=== PATIENT | female | born 1970 ===

== ENCOUNTER → 2021-03-05 08:07 | Outpatient (CLI) | payer BC, SELFPAY ==
[2021-03-05 11:58] LABS: COVID19 -Nasal RAPID Negative (Negative)
== END ==
PROVIDERS: Visit Provider Nurse Practitioner Family
DX: Z20.822 Contact with and (suspected) exposure to COVID-19 (principal)
CPT/HCPCS: 87635

== ENCOUNTER → 2021-03-06 06:47 | Outpatient (CLI) | payer BC, SELFPAY | PROVIDERS: Referring Provider Internal Medicine; Visit Provider Internal Medicine | DX: Z23 Encounter for immunization (principal) | CPT/HCPCS: 90471; 90686 ==

== ENCOUNTER → 2021-03-12 08:07 | Outpatient (CLI) | payer BC, SELFPAY ==
[2021-03-12 12:12] LABS: COVID19 -Nasal RAPID Negative (Negative)
== END ==
PROVIDERS: Visit Provider Physician Assistant
DX: Z20.822 Contact with and (suspected) exposure to COVID-19 (principal)
CPT/HCPCS: 87635

== ENCOUNTER → 2021-04-18 09:33 | Outpatient (CLI) | payer BC, SELFPAY ==
[2021-04-18 12:53] LABS: COVID19 -Nasal RAPID Negative (Negative)
== END ==
PROVIDERS: Visit Provider Nurse Practitioner Family
DX: Z20.822 Contact with and (suspected) exposure to COVID-19 (principal); R05.9 Cough, unspecified
CPT/HCPCS: 87635

== ENCOUNTER → 2022-01-22 08:53 | Outpatient (CLI) | payer BC, SELFPAY ==
[2022-01-22 11:50] LABS: COVID-19 CEPHEID PCR (VTM/NP) Negative (Negative)
== END ==
PROVIDERS: Visit Provider Family Medicine Sleep Medicine
DX: Z20.822 Contact with and (suspected) exposure to COVID-19 (principal)
CPT/HCPCS: U0003; U0005

== ENCOUNTER → 2022-02-20 11:12 | Outpatient (CLI) | payer OTHER, BC, SELFPAY | PROVIDERS: Referring Provider Internal Medicine; Visit Provider Internal Medicine | DX: Z23 Encounter for immunization (principal) | CPT/HCPCS: 90471; 90686 ==

== ENCOUNTER 2022-05-14 12:17 | Day surgery (SDC) | payer OTHER, BC, SELFPAY ==
--- NOTE | 2022-05-14 | PATH_ITS ---
[facility] Accession Number: [id number] No. of containers..01 Tissue . 01 Material submitted: . colon - TRANSVERSE POLYP . 01 Diagnosis: Transverse Colon, Polyp, Biopsy: Tubular adenoma. Additional levels were examined. MRV 05/21/2022 1806 Local . 01 Electronically signed: . Heather Luis MD, Pathologist NPI- [id number] . 01 Gross description: . TRANSVERSE POLYP: Received in formalin is 1 fragment(s) of danielson, soft tissue measuring 0.3 x 0.3 x 0.1 cm submitted entirely in 1 cassette(s) /CPE 05/15/2022 0853 Local . 01 Pathologist provided ICD-10: D12.3 . 01 CPT . 249497 Specimen Comment: A courtesy copy of this report has been sent to [phone] Performed at: 01 [facility] [address] [place] [address], [place], [place] [id number] MD Donnell Carty MD Phone: [phone]
[2022-05-14 13:05] VITALS: BP 141/96; PULSE 97; RESP 16; TEMP 36.3; O2SAT 99; BMI 25.7
[2022-05-14] MEDS: LACTATED RINGERS 1,000 ML 200 ML IV (13:31)
--- NOTE | 2022-05-14 13:49 | PM.HP.1 ---
History of Present Illness History of Present Illness Date Patient Seen: 05/14/22 Time Patient Seen: 13:49 Chief complaint: Colonoscopy Narrative: The patient presents for colorectal screening. They have never had any previous examination for such. No personal or family history of colon cancer. On further history denies any recent gastrointestinal symptoms. No nausea, vomiting, abdominal pain, loss of appetite, unexplained weight loss, change in bowel habits, or blood per rectum. Patient History Family & Social History Social History: household members spouse Tobacco & Substance use: Smoking Status Never smoker alcohol intake current alcohol intake frequency a few times a week Substance Use Type does not use Meds Home Medications and Allergies Home Medications Medication Instructions Recorded Confirmed Type losartan 25 mg tablet 25 mg PO DAILY 05/14/22 05/14/22 History metformin 850 mg tablet 850 mg PO BID 05/14/22 05/14/22 History ropinirole 2 mg tablet 2 mg PO DAILY 05/14/22 05/14/22 History semaglutide 7 mg tablet 7 mg PO DAILY 05/14/22 05/14/22 History Allergies Allergy/AdvReac Type Severity Reaction Status Date / Time zolpidem Allergy Hallucinati Verified 05/14/22 13:01 ng eszopiclone AdvReac Insomnia Verified 05/14/22 13:01 Exam Vital Signs (past 8 hours): - 05/14/22 13:05 Temperature 97.4 F L Pulse Rate 97 H Respiratory Rate 16 Blood Pressure 141/96 H Pulse Oximetry 99 Oxygen Delivery Method Room Air Oxygen Delivery Method Room Air Narrative Exam Narrative: General adult woman alert oriented no acute distress Assessment & Plan Assessment & Plan narrative: The patient requires colorectal screening and colonoscopy is recommended. Technical details were discussed. Risks, benefits, alternatives explained. Risks including but not limited to myocardial infarction, aspiration, bleeding, pain, missed lesion, incomplete examination, need for further radiographic studies, colonic perforation, and need for major abdominal surgery were discussed. All questions were answered to their satisfaction, and they are in agreement with this plan. Time Spent With Patient Critical Care time: I spent a total of [] minutes of critical care time on this patient's care today; this time is exclusive of procedural time.
--- NOTE | 2022-05-14 13:50 | PM.OP.COLON ---
Operative Date/Time/Diagnoses Date of procedure: 05/14/22 Time of procedure: 13:50 Pre-op diagnosis: Colorectal screening Post-op diagnosis: same Procedure & Clinicians Study performed: Colonoscopy Same procedure as scheduled: Yes Indications: Colorectal screening Surgeon: Olvin Kaur Procedure Notes Procedure in detail: The history and physical was performed/updated and the patient is ASA class is 2. The procedure was discussed in detail with the patient. Potential risks complications including infection, bleeding, missed diagnosis, perforation, need for surgery, and were explained. Their questions were answered and informed consent was obtained. Patient was brought to the procedure room and placed standard monitoring equipment. The patient's vital signs were monitored continuously throughout the entire procedure. Prior to starting time-out was performed. The patient was placed in the left lateral recumbent position. Procedural sedation was administered by anesthesia. Examination began with a thorough inspection of the perianal area there was no evidence of fissures, fistulae, external hemorrhoids or cutaneous malignancy. The colonoscopy scope was then placed into the anal canal and was advanced to the cecum, which was identified by the ileocecal valve, the appendiceal orifice and the confluence of the taenia. The scope was then slowly withdrawn examining colon thoroughly in all directions, irrigating it of any residual stool. FINDINGS 1. Transverse colon polyp 3 mm removed with biopsy forceps 2. No masses or inflammation The patient tolerated the procedure well. They will be discharged once criteria are met. The prep was of good/excellent quality. The withdrawl time was 7 minutes. Specimen(s): other (Transverse colon polyp) Impression: Colonic polyp Post-procedure Recommendations: High fiber diet Plan for aftercare: Follow-up is dependent on pathology findings Disposition: same day surgery
[2022-05-14 14:18] VITALS: BP 124/84; PULSE 97; RESP 21; TEMP 36.1; O2SAT 100
[2022-05-14 14:25] VITALS: BP 110/75; PULSE 90; RESP 19; TEMP 36.3; O2SAT 10
[2022-05-14 14:30] VITALS: BP 119/73; PULSE 91; RESP 18; TEMP 36.3; O2SAT 10
[2022-05-14 14:38] VITALS: BP 120/82; PULSE 87; RESP 16; TEMP 36.3; O2SAT 100
== END 2022-05-14 14:45 | disposition home or self-care (01) ==
PROVIDERS: Referring Provider Surgery; Visit Provider Surgery
PROC: 0DJD8ZZ Inspection of Lower Intestinal Tract, Via Natural or Artificial Opening Endoscopic (ICD-10-PCS; CPT 45378; principal; 2022-05-14 13:30)
DX: Z12.11 Encounter for screening for malignant neoplasm of colon (principal); D12.3 Benign neoplasm of transverse colon
CPT/HCPCS: 45380; J2704